=== PATIENT | male | born 1945 | race Caucasian/White ===

== ENCOUNTER → 2017-04-12 | Outpatient (CLI) | payer OTHER, MEDICARE ==
[~2017-04-12] MED LIST: ACTONEL5 MG PO; ATENOLOL50 MG PO; BACTRIM DS 8001 TA1 PO; MULTIVITAMIN1 CTB PO; TYLENOL W/CODEI1 TA2 PO
--- NOTE | ~2017-04-12 | PROC NOTE ---
[place], [place] PROCEDURE NOTE NAME: RAMON LING UNIT #: [id number] ROOM: DOCTOR: DONA MAZA BIRTHDATE: [birth year] DOS: 04/12/2017 MODIFIED BARIUM SWALLOW DOCTOR: Dr. Gagnon. RADIOLOGIST: Dr. Gregg. BACKGROUND INFORMATION: The patient is a 71-year-old male who was seen for modified barium swallow. This test was ordered to determine safety with diet upgrade as well as progress that has been displayed with swallowing skills. This patient is currently receiving home health dysphagia therapy to improve swallowing safety. Medical history is significant for cerebral infarction occurring in the fall of 2015. He also suffered from acute respiratory failure with need for tracheostomy and mechanical ventilation. Due to prolonged intubation, tongue trauma occurred with eventual need for resection of the anterior portion of the tongue. The patient had been consuming pureed foods and nectar thick liquid as per recommendation from prior modified barium swallow. Through therapy, he has shown progress with eventual upgrade to some soft solid foods and thin liquids with use of chin tuck maneuver. For today's assessment, the patient was alert and able to follow all commands. Respiratory status was within normal limits. Oral peripheral examination revealed presence of upper and lower dentures. These are new dentures and patient has been having difficulty with them as they are loose fitting on the bottom. Despite this, he was able to wear his dentures throughout the examination. Labial and buccal skills were within normal limits in terms of strength, range of motion, and coordination. Lingual skills were mildly impaired in strength and moderately impaired in range of motion. The patient was able to volitionally cough and swallow. METHODS AND MATERIALS USED FOR THE EXAM: The patient was positioned in the lateral plane and the examination was viewed under fluoroscopy. The patient was presented with a variety of consistencies to assess swallowing skills including applesauce mixed with barium presented in half teaspoon amounts, barium-coated cookie and bread presented in bite size pieces and thin liquid barium taken by cup. ORAL PHASE: The patient achieved adequate labial seal around cup and spoon with no anterior loss. Bolus formation was adequate. Mastication of soft solid was slow. Oral transit time was mildly impaired. The patient achieved adequate tongue to palate contact. Tongue to posterior pharyngeal wall contact was mildly impaired with all consistencies. Velar functioning was within normal limits with no nasal regurgitation. PHARYNGEAL PHASE: Premature loss into the vallecula was noted with puree and soft solids due to his slow oral transit time. Once the swallow occurred, he displayed adequate laryngeal elevation. A mild amount of residue was observed in the vallecula; however, this completely cleared with cues to re-swallow. When swallowing a larger volume with thin liquid, transient penetration occurred during the swallow, no aspiration occurred with any consistency. [place], [place] PROCEDURE NOTE NAME: RAMON LING UNIT #: [id number] ROOM: DOCTOR: DONA MAZA BIRTHDATE: [birth year] ESOPHAGEAL PHASE: This phase of the swallow was not formally assessed during this exam. IMPRESSIONS AND RECOMMENDATIONS: Based upon assessment results, this 71-year-old male presents with a mild oropharyngeal dysphagia characterized by premature loss with puree and solid due to slow oral transit and mastication, mild residue in the vallecula due to reduced tongue to posterior pharyngeal wall contact and transient penetration with larger volume of thin liquid. This was not observed with small sip of thin liquid. No aspiration occurred with any consistency. Recommend soft foods and thin liquids with continued upgrade to more solid food as patient tolerates it. Recommend safety strategies such as small bites and sips, posterior placement of food, alternating liquid and solid and remaining upright 30 minutes after meals. Also, recommend continued use of chin tuck maneuver with liquids. Recommend continued home health dysphagia therapy for further strengthening of muscles. Results and recommendations were shared with the patient and his daughter and a written copy was provided. They verbalized understanding of all information provided. Thank you very much for this referral. Should you have any questions regarding this patient, please contact the speech pathologist at [phone]. DONA MAZA CM:PROCNOTE:PROCEDURE NOTE [id number] DONA MAZA
--- NOTE | ~2017-04-12 | SLPPN ---
[place], [place] SYSTEMS TEST TECHNICIAN PROGRESS NOTE NAME: RAMON LING UNIT #: [id number] ROOM: DOCTOR: ADITI MORA Speech Language Pathology Treatment Note Page 1 1 of Patient Name: RAMON LING Date: 04/12/2017 10:23 AM : 1945 SOC Date: 04/12/2017 Provider: [facility] Provider #: [id number] Treating Clinician: BAO Marrero-JENI Referring Physician: ADITI MORA Onset Date Description Code Primary Diagnosis: 04/12/2017 R13.19 Other dysphagia Time In: 09:00 AM Time Out: 10:00 AM SYSTEMS TEST TECHNICIAN Interventions and CPT Codes Consisted of: CPT Code Modifiers Minutes Units MOTION FLUOROSCOPY/SWALLOW 78261 60 1 Total Minutes: 60 Total Timed Minutes: 0 Total Untimed Minutes: 60 Total Units: 1 Total Timed Units: 0 Total Untimed Units: 1 04/12/2017 10:24:06 AM VIRI Marrero Date/Time State License #: [id number] CM:LISSY 1028 1028 [facility]
--- NOTE | ~2017-04-12 | SLPPOC ---
[place], [place] TRAUMA DIRECTOR PLAN OF CARE NAME: RAMON LING UNIT #: [id number] ROOM: DOCTOR: ADITI MORA Speech Language Pathology Plan of Care Page 1 1 (Initial Evaluation) of Patient Name: RAMON LING Date: 04/12/2017 10:22 AM : 1945 SOC Date: 04/12/2017 Provider: [facility] Provider #: [id number] Treating Clinician: BAO Marrero-TRAUMA DIRECTOR Referring Physician: ADITI MORA Medicare #: [id number] Visits From SOC: 1 Onset Date Description Code Primary Diagnosis: 04/12/2017 R13.19 Other dysphagia Subjective Comments: Initial evaluation created to initiate the electronic medical record. Please see [employer] for details. Initial Level Goals Functional Limitation Reporting Swallowing G8996 - Swallowing functional limitation, current status at therapy episode outset and at reporting intervals Current Status: CJ - At least 20 percent but less than 40 percent impaired, limited or restricted G8997 - Swallowing functional limitation, projected goal status, at therapy episode outset, at reporting intervals, and at discharge or to end reporting Goal Status: CJ - At least 20 percent but less than 40 percent impaired, limited or restricted G8998 - Swallowing functional limitation, discharge status, at discharge from therapy or to end reporting Discharge Status: CJ - At least 20 percent but less than 40 percent impaired, limited or restricted 04/12/2017 10:23:11 AM ADITI MORA Date/Time BAO Marrero-JENI Date I certify the need for these services furnished under this plan of treatment while under my care. State License #: [id number] CM:SLPPOC 1028 1027 [facility]
--- NOTE | ~2017-04-12 | SLPIE ---
[place], [place] SAND SHOVELER INITIAL EVALUATION NAME: RAMON LING UNIT #: [id number] ROOM: DOCTOR: ADITI MORA Speech Language Pathology Initial Evaluation Page 1 1 of Patient Name: RAMON LING Date: 04/12/2017 10:22 AM : 1945 SOC Date: 04/12/2017 Provider: [facility] Provider #: [id number] Treating Clinician: BAO Marrero-JENI Referring Physician: ADITI MORA Patient Information Address: [address] [place] [address] Physician: ADITI MORA Physician #: [facility], [facility], Zip: [place], [place] [address] Occupation: Unknown # of Approved Visits: 0 Gender: Male Supervisor Braiding: MIRNA LING Medicare #: [id number] Rehabilitation Information / History Onset Date Code Description Primary Diagnosis: 04/12/2017 R13.19 Other dysphagia Subjective Comments: Initial evaluation created to initiate the electronic medical record. Please see [employer] for details. Clinical Findings Functional Goals Functional Limitation Reporting Swallowing G8996 - Swallowing functional limitation, current status at therapy episode outset and at reporting intervals Current Status: CJ - At least 20 percent but less than 40 percent impaired, limited or restricted G8997 - Swallowing functional limitation, projected goal status, at therapy episode outset, at reporting intervals, and at discharge or to end reporting Goal Status: CJ - At least 20 percent but less than 40 percent impaired, limited or restricted G8998 - Swallowing functional limitation, discharge status, at discharge from therapy or to end reporting Discharge Status: CJ - At least 20 percent but less than 40 percent impaired, limited or restricted 04/12/2017 10:23:11 AM BAO Marrero-JENI Date/Time [place], [place] SAND SHOVELER INITIAL EVALUATION NAME: RAMON LING UNIT #: [id number] ROOM: DOCTOR: ADITI MORA [facility] License #: [id number] CM:SUNITA 1028 1027 [facility]
== END ==
LOC: RAD/SH 09:00
DX: J96.00 Acute respiratory failure, unspecified whether with hypoxia or hypercapnia (principal)

== ENCOUNTER → 2019-05-19 | Outpatient (CLI) | payer OTHER | END | disposition home or self-care (01) | LOC: US 05-18 07:30 | DX: Z13.6 Encounter for screening for cardiovascular disorders (principal); T65.294S Toxic effect of other tobacco and nicotine, undetermined, sequela; J43.9 Emphysema, unspecified; R06.00 Dyspnea, unspecified ==